=== PATIENT | male | born 1955 | race Caucasian/White ===

== ENCOUNTER 2017-07-30 10:39 | Emergency (ER) | payer OTHER ==
[~2017-07-30] VITALS: Ht 177.8 cm; Wt 106.9 kg
[2017-07-30 10:42] VITALS: TEMP 36.4; Ht 177.8 cm; Wt 106.9 kg
--- NOTE | 2017-07-30 11:24 | EMERGENCY ROOM VISIT NOTE ---
History Report prepared by Robert: Vignesh Castano Under the Supervision of: Dr. Sae Downs M.D. First contact with patient: 11:22 Chief Complaint: UNABLE TO VOID Stated Complaint: UNABLE TO VOID History of Present Illness The patient is a 61 year old male who presents to the Emergency Room with complaints of abnormal urinary symptoms that began 2 weeks ago. The patient began to experience pressure in his testicles several weeks ago. He then received a cystoscopy 6 weeks ago secondary to this which was negative. However , two weeks ago he began to have burning upon urination. He notes that he is having some intermittent mild suprapubic abdominal pain as well. He denies any fevers, chills, cough, congestion, chest pain, or any other abnormal symptoms. He denies any urinary symptoms prior to his cystoscopy. He notes that he is having some mild trouble voiding as well. He did not call his Urologist. He is not on Flomax. He has a past medical history of diabetes and hypertension. Source of History: patient Onset: 2 weeks ago Position: other () Symptom Intensity: moderate Quality: other (Urinary burning) Timing: constant Associated Symptoms: + abdominal pain (mild supra pubic, intermittent), + urinary symptoms (Difficulty voiding as well), No fevers, No chills, No cough, No chest pain Note: He has been having some testicular pressure. He denies any other abnormal symptoms. Review of Systems See HPI for pertinent positives and negatives. A total of ten systems were reviewed and were otherwise negative. Past Medical & Surgical Medical Problems: (1) Diabetes (2) HTN (hypertension) (3) Kidney stone Family History Patient reports no known family medical history. Social History Smoking Status: Never Smoker Smokeless Tobacco Use: No Drug Use: none Marital Status: Housing Status: lives with significant other Current/Historical Medications Scheduled Aspirin (Aspirin Ec), 81 MG PO DAILY Carvedilol (Coreg), 6.25 MG PO BID Ciprofloxacin Hcl (Cipro), 1 TAB PO BID Esomeprazole Magnesium (Nexium), 40 MG PO DAILY Insulin Glargine (Lantus), 24 UNITS SC DAILY Lisinopril (Lisinopril), 10 MG PO DAILY Metformin Hcl (Glucophage), 500 MG PO BID Multivitamin (Multivitamin), 1 TAB PO DAILY Rosuvastatin Calcium (Crestor), 40 MG PO DAILY Saccharomyces Boulardii (Florastor), 1 CAP PO BID Tamsulosin Hcl (Flomax), 0.4 MG PO DAILY Allergies Coded Allergies: Penicillins (Unverified Allergy, Intermediate, UNKNOWN, 07/30/17) Physical Exam Vital Signs Date Time Temp Pulse Resp B/P (MAP) Pulse Ox O2 Delivery O2 Flow Rate FiO2 07/30/17 15:37 84 16 152/96 96 07/30/17 15:03 51 18 167/83 95 Room Air 07/30/17 14:00 74 18 155/98 96 Room Air 07/30/17 10:42 36.4 70 16 158/101 97 Room Air Physical Exam GENERAL: Awake, alert, well-appearing, in no distress HENT: Normocephalic, atraumatic. Oropharynx unremarkable. EYES: Normal conjunctiva. Sclera non-icteric. NECK: Supple. No nuchal rigidity. FROM. No JVD. RESPIRATORY: Clear to auscultation. CARDIAC: Regular rate, normal rhythm. Extremities warm and well perfused. Pulses equal. ABDOMEN: Soft, non-distended. No tenderness to palpation. No rebound or guarding. No masses. Prostate: Boggy, mildly tender prostate MUSCULOSKELETAL: Chest examination reveals no tenderness. The back is symmetrical on inspection without obvious abnormality. There is no CVA tenderness to palpation. No joint edema. LOWER EXTREMITIES: Calves are equal size bilaterally and non-tender. No edema. No discoloration. NEURO: Normal sensorium. No sensory or motor deficits noted. SKIN: No rash or jaundice noted. Medical Decision & Procedures ER Provider Diagnostic Interpretation: Radiology results as stated below per my review and radiologist interpretation: TESTICULAR ULTRASOUND CLINICAL HISTORY: Bilateral testicular pain COMPARISON STUDY: No previous studies for comparison. FINDINGS: The right testis measures 19 x 8 x 12 mm. The left testis measures 23 x 11 x 18 mm. Both testes are heterogeneous in echotexture. There is no evidence of testicular torsion. There are bilateral varicoceles. There are tiny bilateral epididymal cysts. IMPRESSION: 1. No evidence of testicular torsion 2. Bilateral heterogeneous testicular echotexture without evidence of focal mass 3. Bilateral varicoceles Electronically signed by: Wilson Mccoy M.D. 07/30/2017 1:47 PM Dictated Date/Time: 07/30/2017 1:45 PM (RENAL)RETROPERITON COMP HISTORY: hematuria COMPARISON: None. FINDINGS: Right kidney: Maximum dimension 13.2 cm. No evidence for hydronephrosis. Left kidney: Maximum dimension 13.5 cm. 1.5 cm mid pole cyst. Normal corticomedullary differentiation and cortical thickness. Bladder: Debris versus a small polyp within a small bladder diverticulum. IMPRESSION: 1. Normal renal ultrasound. 2. Debris versus polyp within a posterior bladder diverticulum The above report was generated using voice recognition software. It may contain grammatical, syntax or spelling errors. Electronically signed by: Kalia Mcgee M.D. 07/30/2017 1:50 PM Dictated Date/Time: 07/30/2017 1:49 PM Laboratory Results 07/30/17 12:00 Red Blood Count 3.97, Mean Corpuscular Volume 91.9, Mean Corpuscular Hemoglobin 31.7, Mean Corpuscular Hemoglobin Concent 34.5, Mean Platelet Volume 10.4, Neutrophils (%) (Auto) 62.3, Lymphocytes (%) (Auto) 27.9, Monocytes (%) (Auto) 7.8, Eosinophils (%) (Auto) 1.5, Basophils (%) (Auto) 0.3, Neutrophils # (Auto) 3.75, Lymphocytes # (Auto) 1.68, Monocytes # (Auto) 0.47, Eosinophils # (Auto) 0.09, Basophils # (Auto) 0.02 07/30/17 12:00 Test 07/30/17 12:00 White Blood Count 6.02 K/uL (4.8-10.8) Red Blood Count 3.97 M/uL (4.7-6.1) Hemoglobin 12.6 g/dL (14.0-18.0) Hematocrit 36.5 % (42-52) Mean Corpuscular Volume 91.9 fL (80-100) Mean Corpuscular Hemoglobin 31.7 pg (25-34) Mean Corpuscular Hemoglobin Concent 34.5 g/dl (32-36) Platelet Count 213 K/uL (130-400) Mean Platelet Volume 10.4 fL (7.4-10.4) Neutrophils (%) (Auto) 62.3 % Lymphocytes (%) (Auto) 27.9 % Monocytes (%) (Auto) 7.8 % Eosinophils (%) (Auto) 1.5 % Basophils (%) (Auto) 0.3 % Neutrophils # (Auto) 3.75 K/uL (1.4-6.5) Lymphocytes # (Auto) 1.68 K/uL (1.2-3.4) Monocytes # (Auto) 0.47 K/uL (0.11-0.59) Eosinophils # (Auto) 0.09 K/uL (0-0.5) Basophils # (Auto) 0.02 K/uL (0-0.2) RDW Standard Deviation 45.7 fL (36.4-46.3) RDW Coefficient of Variation 13.8 % (11.5-14.5) Immature Granulocyte % (Auto) 0.2 % Immature Granulocyte # (Auto) 0.01 K/uL (0.00-0.02) Urine Color YELLOW Urine Appearance CLOUDY (CLEAR) Urine pH 5.5 (4.5-7.5) Urine Specific [place] 1.023 (1.000-1.030) Urine Protein 2+ (NEG) Urine Glucose (UA) 3+ (NEG) Urine Ketones NEG (NEG) Urine Occult Blood 1+ (NEG) Urine Nitrite NEG (NEG) Urine Bilirubin NEG (NEG) Urine Urobilinogen NEG (NEG) Urine Leukocyte Esterase MODERATE (NEG) Urine WBC (Auto) >30 /hpf (0-5) Urine RBC (Auto) 10-30 /hpf (0-4) Urine Hyaline Casts (Auto) 0 /lpf (0-5) Urine Epithelial Cells (Auto) 5-10 /lpf (0-5) Urine Bacteria (Auto) 1+ (NEG) Anion Gap 8.0 mmol/L (3-11) Est Creatinine Clear Calc Drug Dose 86.5 ml/min Estimated GFR () 85.2 Estimated GFR (Non- 73.5 BUN/Creatinine Ratio 13.0 (10-20) Calcium Level 9.0 mg/dl (8.5-10.1) Laboratory results reviewed by me Medications Administered Medications (Trade) Dose Ordered Sig/Dima Route Start Time Stop Time Status Last Admin Dose Admin Sodium Chloride 1,000 ml @ 999 mls/hr Q1H1M STAT IV 07/30/17 11:31 07/30/17 12:31 DC 07/30/17 11:31 999 MLS/HR Ciprofloxacin (Cipro Tab) 500 mg NOW STAT PO 07/30/17 14:30 07/30/17 14:33 DC 07/30/17 14:30 500 MG ED Course 1122: The patient was evaluated in room C11. A complete history and physical exam was performed. 1526: I reevaluated the patient. Discussed results and discharge instructions: He verbalized understanding and agreement. The patient is ready for discharge. Medical Decision I reviewed the patient's past medical history, medications, and the nursing notes as described above. Differential diagnosis includes but is not limited to: UTI, renal stone, pyelonephritis, prostatitis, and BPH. Patient is a 61-year-old gentleman presents to emergency department with a complaint of difficulty urinating as well as burning with urination per history of present illness. Arrival the patient is relatively well-appearing, afebrile stable vital signs. She does report bilateral testicular fullness but otherwise exam including genital exam is unremarkable. WBC and creatinine within normal limits. UA grossly positive for infection. Testicular ultrasound with bilateral varicoceles but otherwise unremarkable for acute findings. Renal ultrasound question of a bladder polyp versus debris but otherwise no hydronephrosis or renal stones. Given the patient's positive UA prostate exam was done and showed mildly enlarged prostate with mild tenderness consistent with prostatitis. Thus patient was treated with Cipro. Urine was again assessed for urinary retention and upon bladder scan by RN had residual of less than 200 mL. Thus no need for Acosta catheter at this time. Plan for PCP follow-up. Findings and plan for follow-up reviewed with patient. Patient agreeable and d/c'd per discharge instructions. Medication Reconcilliation Current Medication List: was personally reviewed by me Blood Pressure Screening Patient's blood pressure: Elevated blood pressure Blood pressure disposition: Elevated BP felt to be situational Impression Primary Impression: Prostatitis Scribe Attestation The scribe's documentation has been prepared under my direction and personally reviewed by me in its entirety. I confirm that the note above accurately reflects all work, treatment, procedures, and medical decision making performed by me. Departure Information Dispostion Home / Self-Care Prescriptions Tamsulosin Hcl (FLOMAX) 0.4 Mg Cap 0.4 MG PO DAILY for 14 Days, #14 CAP Prov: Sae Downs M.D. 07/30/17 Saccharomyces Boulardii (Florastor) 250 Mg Cap 1 CAP PO BID for 30 Days, #60 CAP Prov: Sae Downs M.D. 07/30/17 Ciprofloxacin Hcl (CIPRO) 500 Mg Tab 1 TAB PO BID for 14 Days, #28 TAB Prov: Sae Downs M.D. 07/30/17 Forms HOME CARE DOCUMENTATION FORM, IMPORTANT VISIT INFORMATION, WORK / SCHOOL INSTRUCTIONS Patient Instructions ED Prostatitis, Counts Include [facility] B[facility] At [facility] Additional Instructions Please follow up with your primary care physician in the next week for re- evaluation. Your doctor may also have you follow up with your urologist if symptoms persist. You likely have prostatitis given your urine analysis and your prostate tenderness. Otherwise, your exam, ultrasound of your testicles and kidneys, and lab results did not show signs of an emergent condition at this time. Ciprofloxacin as directed. You were given a 2 week supply but this will need to be extended by your doctor for a total of 6 weeks to treat prostatitis. Florastor probiotic to help prevent antibiotic associated diarrhea. Tamsulosin to help with urinary retention due to your enlarged prostate. Return to the emergency department for worsening symptoms as described in the accompanying instructions.
[2017-07-30] MEDS ORDERED: SODIUM CHLORIDE 0.9% 1000ML 1,000 ML IV STA (11:31)
[2017-07-30 12:12] LABS: BASO % 0.3 %; BASO ABS # 0.02 K/uL (0-0.2); COMPLETE YES; EOS % 1.5 %; HEMATOCRIT 36.5 % (42-52); IG% 0.2 %; LYMPH % 27.9 %; LYMPH ABS # 1.68 K/uL (1.2-3.4); MANUAL MICROSCOPIC REQUIRED? NO; MEAN CELL VOLUME 91.9 fL (80-100); MEAN CORPUSCULAR HEMOGLOBIN 31.7 pg (25-34); MEAN CORPUSCULAR HGB CONC 34.5 g/dl (32-36); MEAN PLATELET VOLUME 10.4 fL (7.4-10.4); MONO % 7.8 %; NEUT % 62.3 %; PLATELET COUNT 213 K/uL (130-400); RED BLOOD COUNT 3.97 M/uL (4.7-6.1); REVIEW REQ? NO; URINE APPEARANCE CLOUDY (CLEAR); URINE BILIRUBIN NEG (NEG); URINE COLOR YELLOW; URINE NITRITE NEG (NEG); URINE PH 5.5 (4.5-7.5); URINE SPECIFIC GRAVITY 1.023 (1.000-1.030); UROBILINOGEN NEG (NEG); WHITE BLOOD COUNT 6.02 K/uL (4.8-10.8); ZZUR CULT IF INDIC CLEAN CATCH YES
[2017-07-30] MEDS ORDERED: CARV6.252 PO (12:26)
[2017-07-30] MEDS ORDERED: INSDGI SC (12:26)
[2017-07-30] MEDS ORDERED: GLC/500 PO (12:26)
[2017-07-30] MEDS ORDERED: ROSU40TA PO (12:26)
[2017-07-30] MEDS ORDERED: MULT-506 PO (12:26)
[2017-07-30] MEDS ORDERED: LISI-461 PO (12:26)
[2017-07-30] MEDS ORDERED: ASPI81TA28 PO (12:26)
[2017-07-30] MEDS ORDERED: NXM/40 PO (12:26)
[2017-07-30 12:35] LABS: CREATININE 1.07 mg/dl (0.60-1.40); POTASSIUM 4.4 mmol/L (3.5-5.1)
--- NOTE | 2017-07-30 13:48 | DIAGNOSTIC IMAGING REPORT ---
TESTICULAR ULTRASOUND CLINICAL HISTORY: Bilateral testicular pain COMPARISON STUDY: No previous studies for comparison. FINDINGS: The right testis measures 19 x 8 x 12 mm. The left testis measures 23 x 11 x 18 mm. Both testes are heterogeneous in echotexture. There is no evidence of testicular torsion. There are bilateral varicoceles. There are tiny bilateral epididymal cysts. IMPRESSION: 1. No evidence of testicular torsion 2. Bilateral heterogeneous testicular echotexture without evidence of focal mass 3. Bilateral varicoceles Electronically signed by: Wilson Mccoy M.D. 07/30/2017 1:47 PM Dictated Date/Time: 07/30/2017 1:45 PM
--- NOTE | 2017-07-30 13:51 | DIAGNOSTIC IMAGING REPORT ---
(RENAL)RETROPERITON COMP HISTORY: hematuria COMPARISON: None. FINDINGS: Right kidney: Maximum dimension 13.2 cm. No evidence for hydronephrosis. Left kidney: Maximum dimension 13.5 cm. 1.5 cm mid pole cyst. Normal corticomedullary differentiation and cortical thickness. Bladder: Debris versus a small polyp within a small bladder diverticulum. IMPRESSION: 1. Normal renal ultrasound. 2. Debris versus polyp within a posterior bladder diverticulum The above report was generated using voice recognition software. It may contain grammatical, syntax or spelling errors. Electronically signed by: Kalia Mcgee M.D. 07/30/2017 1:50 PM Dictated Date/Time: 07/30/2017 1:49 PM
[2017-07-30] MEDS ORDERED: CIPROFLOXACIN 500 MG TAB PO STA (14:30)
[2017-07-30] MEDS ORDERED: SACC250C3 PO (14:59)
[2017-07-30] MEDS ORDERED: CIPR1TAB10 PO (14:59)
[2017-07-30] MEDS ORDERED: TAMS0.4C38 PO (15:00)
[2017-07-30 15:37] VITALS: BP 152/96; PULSE 84; O2SAT 96
--- NOTE | 2017-08-01 13:39 | Pharmacy Progress Note ---
ED Pharmacist Culture FollowUp Date of Service: Aug 01, 2017. Patient was seen on 07/30 for urinary symptoms (burning, suprapubic tenderness) and was diagnosed with UTI. He has a h/o DM + kidney stones. He was diagnosed with prostatitis, and given Rx for Ciprofloxacin 500mg BID x 14 days. The urine cx is growing enterococcus faecalis sensitive to Ciprofloxacin. Case reviewed with Dr Mahan, therapy is appropriate however patient should be evaluated by PCP before abx therapy is complete as some patients require longer than 2 weeks of therapy. Contacted patient via phone ([phone]). He states his symptoms have resolved and he is feeling better. The patient confirmed that he has a f/u appointment on the before abx therapy is complete. No further action required from ED standpoint.
== END 2017-07-30 15:43 | disposition home or self-care (01) ==
LOC: C.EDB 10:40 → C.EDC 15:43
DX: N41.9 Inflammatory disease of prostate, unspecified (principal); N39.0 Urinary tract infection, site not specified; E11.9 Type 2 diabetes mellitus without complications; I10 Essential (primary) hypertension; Z79.82 Long term (current) use of aspirin; Z79.4 Long term (current) use of insulin; Z87.442 Personal history of urinary calculi